=== PATIENT | female | born 1965 | race Caucasian/White ===

== ENCOUNTER → 2021-08-08 15:21 | Outpatient (CLI) | payer BC, SELFPAY ==
--- NOTE | ~2021-08-08 | US_ITS ---
EXAMINATION: US transvaginal DATE: 08/08/2021 15:53 INDICATION: Postmenopausal bleeding TECHNIQUE: Multiple endovaginal sonographic images of the pelvis were obtained. COMPARISON: None. FINDINGS: The uterus measures 9.4 x 4.1 x 6.8 cm. The endometrial complex measures 10 mm. The left ov venus is not visualized however no left adnexal abnormality is seen. The right ovary is not well visual ized but appears to measure 4.9 x 3.0 x 3.8 cm. There is no free fluid in the pelvis. IMPRESSION: 1. Endometrial thickening which may be due to hyperplasia, polyp, or malignancy. Endometrial sampling is recommended. Reviewed, dictated and finalized at location B. L TESTER IMPRESSION: 1. Endometrial thickening which may be due to hyperplasia, polyp, or malignancy . Endometrial sampling is recommended.
== END ==
PROVIDERS: Visit Provider Obstetrics & Gynecology Gynecology
DX: N95.0 Postmenopausal bleeding (principal); R93.89 Abnormal findings on diagnostic imaging of other specified body structures
CPT/HCPCS: 76830

== ENCOUNTER → 2021-09-22 15:21 | Outpatient (CLI) | payer BC, SELFPAY ==
--- NOTE | ~2021-09-22 | MM_ITS ---
EXAMINATION: MM screening jacque BI w wyatt HISTORY: Screening mammogram TECHNIQUE: Craniocaudal and mediolateral oblique 3-D tomosynthesis images were obtained and synthetic 2-D images were generated. CAD analysis was submitted and interpreted. COMPARISON: 05/31/2005 bilateral diagnostic mammogram 05/23/2005 bilateral screening mammogram BREAST PARENCHYMAL COMPOSITION: The breasts are almost entirely fatty. FINDINGS: Stable mild fibroglandular asymmetry. There is no evidence of suspicious mass, calcificatio n, or architectural distortion to suggest malignancy in either breast. There has been no suspicious i nterval change. IMPRESSION: 1. No mammographic evidence of malignancy. 2. Recommend routine screening mammography in one year. BI-RADS Category 1: Negative Reviewed, dictated and finalized at location A.
== END ==
PROVIDERS: PCP Obstetrics & Gynecology Gynecology; Visit Provider Obstetrics & Gynecology Gynecology
DX: Z12.31 Encounter for screening mammogram for malignant neoplasm of breast (principal)
CPT/HCPCS: 77063; 77067

== ENCOUNTER 2021-10-02 00:33 | Day surgery (SDC) | payer BC, SELFPAY ==
[2021-09-20 15:26] VITALS: BMI 33.3
--- NOTE | 2021-09-20 15:43 | PC.NURSE ---
Report to the Outpatient Waiting Room, entrance under the green pavilion located off [facility], at time 0700 on date 10/02/21. OR Time: 0900. - You and your visitor will be asked a series of questions to screen for COVID 19 for your protection. - A mask is required within the hospital. One visitor will be allowed to accompany the patient into the hospital. Patients visitor will be instructed to remain with patient at all times or leave the building. We will allow the visitor to come back to the postoperative area when patient is ready. Preoperative COVID Testing Requirements: No COVID Test needed if: (proof is required; if not received patient will have Rapid Test prior to entry) - Patient has received COVID Vaccine at least 14 days prior to procedure date or - Patient has positive COVID test result within last 90 days of surgery date. COVID Test needed if above criteria is not met Patients may have clear liquids (water, carbonated beverages, clear teas, apple juice) until 3 hours prior to surgery with a maximum of 20 ounces. - No food from midnight until time of surgery Take the following medications with a SIP of water the morning of surgery: NONE Medications to discontinue per physician: VITAMINS/SUPPLEMENTS Date to take last dose: 09/28/21 Please no make-up, nail moldovan, hairspray, perfume, deodorant, or body powder the day of surgery. No jewelry (including any body piercings) or valuables the day of surgery, leave them at home. Please take a shower or bath the night before, or the morning of, surgery with an antibacterial soap. Wear comfortable, loose fitting clothing. - Jewelry must be removed prior to entering the operating room. Rings and piercings that are not removed may be cut off. - The hospital will not accept responsibility for valuables. - Please leave all valuables, including medications, at home the day of surgery. If you are going home after surgery, a licensed driver education instructor must drive you home. - NO public transportation without another adult. - We recommend that an adult stay with you for 24 hours following discharge. - We also recommend that you do not drive, make important decision, drink alcoholic beverages, or take any drugs that were not prescribed by your health care provider for at least 24 hours after your discharge time. Follow any additional instructions given to you from your surgeon. Telephone instructions given to CARRIE ALCANTAR and asked if any additional questions and then verbalized understanding. Patient advised to call surgeon office or pre surgery nurse liaison [phone] if any additional questions.
--- NOTE | 2021-10-02 07:09 | P.PNAN_ITS ---
Anes - Initial Pre Proc Eval Procedure: Operation Date: 10/02/21 09:00 Proposed Procedures p Hysteroscopy Dilation and Curettage - Swapna Schaefer MD Date/Time: 10/02/21 07:09 Surgeon: Swapna Schaefer MD Pre Op Diagnosis: Post Menopausal Bleeding Patient Data Age: 56 Gender: F Height: 1.65 m Weight: 90.72 kg Allergies Allergy/AdvReac Type Severity Reaction Status Date / Time latex Allergy Mild Rash Verified 10/02/21 07:50 Home Medications Medication Instructions Recorded Confirmed Type biotin 2,500 mcg PO DAILY 09/20/21 10/02/21 History cholecalciferol (vitamin D3) 125 mcg PO DAILY 09/20/21 10/02/21 History [Vitamin D3] estradiol-norethindrone acet 1 tablet PO DAILY 09/20/21 10/02/21 History glucosamine-chondroitin [Osteo 2 tablet PO DAILY 09/20/21 10/02/21 History Bi-Flex] krill oil 500 mg PO DAILY 09/20/21 10/02/21 History multivitamin 1 tablet PO DAILY 09/20/21 10/02/21 History omeprazole 40 mg PO DAILY 09/20/21 10/02/21 History turmeric 400 mg PO DAILY 09/20/21 10/02/21 History vitamin B complex [B Complex] 1 cap PO DAILY 09/20/21 10/02/21 History vitamin K2 100 mcg PO DAILY 09/20/21 10/02/21 History zinc 15 mg PO DAILY 09/20/21 10/02/21 History Patient hx anesthesia problems: none Family hx anesthesia problems: none Results Review: All pre-operative results and documents have been reviewed as part of the pre-operative evaluation. [facility] Past Medical History Medical History (Updated 10/02/21 @ 07:40 by Swapna Schaefer MD) Anxiety GERD (gastroesophageal reflux disease) Hypothyroid Palpitations Surgical History Surgical History (Updated 10/02/21 @ 07:10 by Raghu Anne DO) History of x3 History of cholecystectomy History of partial thyroidectomy Social History Social History Smoking status: Never smoker Alcohol intake: current Drinks per week: 9 Alcohol use details: WINE Substance use: never Substance use type: does not use Living arrangements: with family Spiritual care concerns: No Anes - Eval Final PreProcedure Day of Procedure 10/02/21 07:09 Patient weight: obese Heart: regular rate and rhythm Lungs: clear to auscultation and normal air movement Airway: Mallampati scale class II Neurological: alert and oriented Last oral intake: >/= 8 hours ASA classification: III Emergent: no Anesthetic plan: proceed Anesthesia type and monitoring: general GIVS and standard monitoring Results Review: All pre-operative results and documents have been reviewed as part of the pre-operative evaluation. Informed Consent: The patient's anesthetic plan and its attendant risks and benefits were discussed with the patient/family/POA. Questions were solicited and answers provided to the satisfaction of the patient/family/POA.
[2021-10-02 07:19] VITALS: BP 132/99; PULSE 74; RESP 18; TEMP 36.1; O2SAT 97
--- NOTE | 2021-10-02 07:36 | WPDHPUPDATE1 ---
History and Physical Update Update Date/Time: 10/02/21 07:36 History and Physical has been reviewed, including an updated exam of the patient. There are NO changes in the patient's condition. Risks, benefits, and alternatives have been discussed and questions answered. Patient agrees to proceed with procedure.
--- NOTE | 2021-10-02 07:36 | PM.HPGS ---
History of Present Illness History of Present Illness Consent: Risks, benefits, and alternatives have been discussed and questions answered. Patient agrees to proceed with procedure. Chief complaint: Post Menopausal Bleeding Narrative: Julianne Duncan is a 56 year old postmenopausal female with episode of bleeding and a thickened endometrium at 10 mm. It was recommended to proceed with D&C hysteroscopy. Risks of infection, bleeding, and perforation were reviewed. Patient voices understanding and agrees to proceed. Review of Systems Constitutional: Constitutional: Reports night sweats (Mild) Genitourinary: Genitourinary: Reports urinary incontinence Musculoskeletal: Musculoskeletal: Reports back pain, Reports arthralgias and Reports neck pain PMFSH Past Medical History Medical History (Updated 10/02/21 @ 07:40 by Swapna Schaefer MD) Anxiety GERD (gastroesophageal reflux disease) Hypothyroid Palpitations Surgical History Surgical History (Updated 10/02/21 @ 07:10 by Raghu Anne DO) History of x3 History of cholecystectomy History of partial thyroidectomy Social History Social History Smoking status: Never smoker Alcohol intake: current Drinks per week: 9 Alcohol use details: WINE Substance use: never Substance use type: does not use Living arrangements: with family Spiritual care concerns: No Meds Home Medications and Allergies Home Medications Medication Instructions Recorded Confirmed Type biotin 2,500 mcg PO DAILY 09/20/21 09/20/21 History cholecalciferol (vitamin D3) 125 mcg PO DAILY 09/20/21 09/20/21 History [Vitamin D3] estradiol-norethindrone acet 1 tablet PO DAILY 09/20/21 09/20/21 History glucosamine-chondroitin [Osteo 2 tablet PO DAILY 09/20/21 09/20/21 History Bi-Flex] krill oil 500 mg PO DAILY 09/20/21 09/20/21 History multivitamin 1 tablet PO DAILY 09/20/21 09/20/21 History omeprazole 40 mg PO DAILY 09/20/21 09/20/21 History turmeric 400 mg PO DAILY 09/20/21 09/20/21 History vitamin B complex [B Complex] 1 cap PO DAILY 09/20/21 09/20/21 History vitamin K2 100 mcg PO DAILY 09/20/21 09/20/21 History zinc 15 mg PO DAILY 09/20/21 09/20/21 History Allergies Allergy/AdvReac Type Severity Reaction Status Date / Time latex Allergy Mild Rash Unverified 10/02/21 07:31 Vital Signs Vital Signs - 24 hr 10/02/21 07:19 Temperature 97.0 F L Pulse Rate 74 Respiratory Rate 18 Blood Pressure 132/99 H Pulse Oximetry 97 Exam Const: General: healthy appearing and alert Orientation/consciousness: patient oriented x3 Resp: Effort & Inspection: normal respiratory effort Auscultation: clear to auscultation bilaterally Cardio: Rate: regular rate Rhythm: regular rhythm GI: GI Palp: Yes Soft to palpation, No Tenderness to palpation present (GI) and No Palpable mass present : External Female Exam: normal external appearance Speculum Exam - Vagina: normal appearance of the vagina and normal vaginal discharge Speculum Exam - Cervix: normal appearance of the cervix Bimanual exam- vagina & uterus: uterine size normal and consistency normal Bimanual Exam- Adnexa, other: normal adnexae and No adnexal tenderness Neuro: General: patient oriented x3 Assessment and Plan Assessment and plan (1) Post-menopausal bleeding: Code(s): N95.0 - Postmenopausal bleeding Status: Acute Assessment and Plan: Plan to proceed with D&C hysteroscopy secondary to thickened endometrium by ultrasound
[2021-10-02] MEDS: LACTATED RINGERS 1,000 ML 30 ML IV CONT (07:45)
[2021-10-02] MEDS: ACETAMINOPHEN 500 MG TABLET 1000 MG PO (07:47)
[2021-10-02] MEDS: KETOROLAC 30 MG/ML VIAL (*BKC) IV PUSH (09:14)
--- NOTE | 2021-10-02 09:17 | W.PM.PROC2 ---
Procedure Note - Detailed Date of Procedure 10/02/21 Pre-op Diagnosis Post Menopausal Bleeding Post-op Diagnosis Same Procedure Performed D&C hysteroscopy Surgeon Swapna Schaefer MD Anesthesia General (Converted to general with LMA) and MAC Findings Cervix is very stenotic. Uterus sounds to 10cm. Endometrium appears grossly normal except for the presence of old blood. Description of Procedure The patient is taken to the operating room and placed under anesthesia in the dorsal lithotomy position. She was prepped and draped in the usual sterile fashion. A bivalve speculum is attempted to be placed in is too wide. A Wilson speculum is requested and placed. The cervix is then grasped on the anterior lip with a tenaculum and injected in each quadrant with 1% lidocaine. The uterus is attempted to be sounded and internal cervical stenosis is noted. The os Finders are used and the cervix is able to be entered. The uterus is sounded to 10cm. The cervix was then serially dilated with difficulty to an 8 Hegar. The diagnostic hysteroscope was placed with the above-stated findings. Hysteroscope was removed and the medium sharp curette used to curette the endometrium until a good uterine cry was noted in all areas. All instruments are removed. The patient is awakened from anesthesia and taken to recovery in stable condition. Sponge, needle, and instrument counts are correct per the OR staff. Estimated Blood Loss 5 Drains No Packing No Pathology Yes (Endometrial curettings) Complications No immediate complications Condition Stable Disposition PACU
[2021-10-02 09:21] VITALS: BP 95/47; PULSE 75; RESP 16; O2SAT 98
[2021-10-02 09:51] VITALS: BP 131/77; PULSE 81; RESP 16
[2021-10-02] MEDS: oxyCODONE HCL (*CRX) 5 MG TAB IR PO (10:05)
[2021-10-02 10:21] VITALS: BP 125/73; PULSE 72; RESP 16
[2021-10-02 10:35] VITALS: BP 119/78; PULSE 65; RESP 16
== END 2021-10-02 10:45 | disposition home or self-care (01) ==
PROVIDERS: Visit Provider Obstetrics & Gynecology Gynecology
PROC: 0U5B8ZZ Destruction of Endometrium, Via Natural or Artificial Opening Endoscopic (ICD-10-PCS; CPT 58563; principal; 2021-10-02 09:00)
DX: N95.0 Postmenopausal bleeding (principal); N85.8 Other specified noninflammatory disorders of uterus; K21.9 Gastro-esophageal reflux disease without esophagitis; E89.0 Postprocedural hypothyroidism; E66.9 Obesity, unspecified; Z68.33 Body mass index [BMI] 33.0-33.9, adult
CPT/HCPCS: 58558; 88305; A9270; J1100; J1885; J2250; J2405; J2704; J3010; J7030; J7120

== ENCOUNTER 2024-04-10 13:19 | Outpatient (CLI) | payer BC, SELFPAY ==
--- NOTE | ~2024-04-10 | MM_ITS ---
EXAMINATION: MM screening jacque BI w wyatt HISTORY: Screening TECHNIQUE: Craniocaudal and mediolateral oblique 3-D tomosynthesis images were obtained and synthetic 2-D images were generated. CAD analysis was submitted and interpreted. COMPARISON: 09/22/2021 BREAST PARENCHYMAL COMPOSITION: Not dense: There are scattered areas of fibroglandular density. FINDINGS: There is no evidence of suspicious mass, calcification, or architectural distortion to sugg est malignancy in either breast. There has been no suspicious interval change. IMPRESSION: 1. No mammographic evidence of malignancy. 2. Recommend routine screening mammography in one year. BI-RADS Category 1: Negative Reviewed, dictated and finalized at location B. SCOPE REPA[employer]ER
== END 2024-04-10 13:20 | disposition home or self-care (01) ==
LOC: MICIMG 13:19
DX: Z12.31 Encounter for screening mammogram for malignant neoplasm of breast (principal)
CPT/HCPCS: 77063; 77067